=== PATIENT | male | born 1980 | race African-American/Black ===

== ENCOUNTER 2019-05-24 07:11 | Inpatient (IN) | payer MEDICAID, OTHER ==
[~2019-05-24] VITALS: Ht 170.2 cm; Wt 79.8 kg
[2019-05-24] MEDS ORDERED: ONDANSETRON HCL 4MG/2ML INJ IV STA (07:38)
[2019-05-24] MEDS ORDERED: MORPHINE SULFATE 4 MG/ML CPJ (NOT FOR IM USE) IV STA (07:38)
[2019-05-24] MEDS ORDERED: SODIUM CHLORIDE 0.9% 1,000 ML IV ONE (07:38)
[2019-05-24] MEDS ORDERED: NITROGLYCERIN OINT 1GM/INCH UDPKT TD ONE (07:45)
[2019-05-24] MEDS ORDERED: ASPIRIN 81MG TABLET PO ONE (07:45)
[2019-05-24 08:09] LABS: BASOPHILS % 0.4 % (0.0-2.0); EOSINOPHILS % 0.1 % (0.0-5.0); HEMATOCRIT. 44.9 % (42.0-52.0); HEMOGLOBIN. 15.1 g/dL (14.0-18.0); LYMPHOCYTES % 22.3 % (20.0-50.0); MEAN CORPUSCULAR HEMOGLOBIN 30.8 pg (28.0-32.0); MEAN CORPUSCULAR VOLUME 91.5 fL (80.0-94.0); MEAN PLATELET VOLUME 8.8 fl (7.4-10.4); MONOCYTES % 4.4 % (2.0-8.0); NEUTROPHILS % 72.8 % (40.0-76.0); PLATELET 234 x1000/uL (130-400); RED BLOOD CELL COUNT 4.91 mill/uL (4.7-6.1)
[2019-05-24 08:15] LABS: CHLORIDE 93 mEq/L (98-107)
[2019-05-24 08:22] LABS: ETHANOL BLOOD < 10 mg/dL
[2019-05-24 08:24] LABS: BETA HYDROXYBUTYRATE 3.8 mMol/L (0.0-0.3)
[2019-05-24] MEDS ORDERED: INSULIN REGULAR (HUMULIN R) 300UNITS/3ML IV ONE (09:00)
[2019-05-24 09:13] LABS: *AMPHETAMINES SCREEN URINE NEGATIVE (NEGATIVE); *BARBITURATES SCREEN URINE NEGATIVE (NEGATIVE); *COCAINE SCREEN URINE NEGATIVE (NEGATIVE)
[2019-05-24 09:14] LABS: *BENZODIAZEPINES SCREEN URINE NEGATIVE (NEGATIVE); CANNABINOID URINE SCREEN NEGATIVE (NEGATIVE); METHADONE URINE SCREEN NEGATIVE (NEGATIVE); OPIATES URINE SCREEN NEGATIVE (NEGATIVE); PHENCYCLIDINE URINE SCREEN NEGATIVE (NEGATIVE)
[2019-05-24] MEDS ORDERED: GUAIFENESIN 200MG/10ML SUGAR FREE UDC PO PRN (11:00)
[2019-05-24] MEDS ORDERED: DEXTROSE 50% WATER 50ML SYRINGE IV PRN (11:00)
[2019-05-24] MEDS ORDERED: DOCUSATE SODIUM 100MG CAPSULE PO PRN (11:00)
[2019-05-24] MEDS ORDERED: ONDANSETRON HCL 4MG/2ML INJ IV PRN (11:00)
[2019-05-24] MEDS ORDERED: MAGNESIUM/ALUMINUM HYDROXIDE/SIMETHICONE 30ML UDC PO PRN (11:00)
[2019-05-24] MEDS ORDERED: KETOROLAC 15MG/ML VIAL IV PRN (11:00)
[2019-05-24] MEDS ORDERED: CLONIDINE 0.1MG TABLET PO PRN (11:00)
[2019-05-24] MEDS ORDERED: LORAZEPAM 0.5MG TABLET PO PRN (11:00)
[2019-05-24] MEDS ORDERED: IPRATROPIUM/ALBUTEROL 0.5-3(2.5)MG/3ML NEB NEB PRN (11:00)
[2019-05-24] MEDS ORDERED: NITROGLYCERIN 0.4MG TABLET SL SL PRN (11:00)
[2019-05-24] MEDS ORDERED: ACETAMINOPHEN 325MG TABLET PO PRN (11:00)
[2019-05-24] MEDS: SODIUM CHLORIDE 0.9% 1,000 ML IV SCH ×2 (11:54→23:13)
[2019-05-24] MEDS: BLOOD SUGAR DIAGNOSTIC STRIP TEST SCH ×3 (13:15→21:02)
[2019-05-24] MEDS: INSULIN LISPRO 100 UNITS/ML SUBCUT SCH ×3 (13:20→20:55)
[2019-05-24] MEDS ORDERED: ZOLPIDEM TARTRATE 5MG TABLET PO PRN (21:00)
[2019-05-24 22:00] VITALS: BP 138/92
[2019-05-24] MEDS ORDERED: INSULIN GLARGINE UD 100 UNITS/ML SYR SUBCUT SCH (22:00)
[2019-05-24] MEDS: FAMOTIDINE 20MG TABLET PO SCH (23:14)
[2019-05-25] MEDS ORDERED: INSULIN GLARGINE UD 100 UNITS/ML SYR SUBCUT SCH
[2019-05-25 00:08] LABS: CREATINE KINASE 99 IU/L (39-308)
[2019-05-25 00:09] LABS: CREATINE KINASE MB FRACTION < 1.0 ng/mL (0.5-3.6)
[2019-05-25] MEDS ORDERED: INSU100V3 SUBCUT (02:28)
[2019-05-25] MEDS: SODIUM CHLORIDE 0.9% 1,000 ML IV SCH (06:07)
[2019-05-25] MEDS: BLOOD SUGAR DIAGNOSTIC STRIP TEST SCH (06:07)
[2019-05-25] MEDS ORDERED: NPH,100V SQ (06:47)
[2019-05-25] MEDS ORDERED: INSU500V SQ (06:47)
[2019-05-25 07:30] LABS: *AMPHETAMINES SCREEN URINE NEGATIVE (NEGATIVE); *BARBITURATES SCREEN URINE NEGATIVE (NEGATIVE); *BENZODIAZEPINES SCREEN URINE NEGATIVE (NEGATIVE); CANNABINOID URINE SCREEN PRESUMTIVE POSITIVE (NEGATIVE); METHADONE URINE SCREEN NEGATIVE (NEGATIVE); OPIATES URINE SCREEN PRESUMTIVE POSITIVE (NEGATIVE); PHENCYCLIDINE URINE SCREEN NEGATIVE (NEGATIVE)
[2019-05-25 07:31] LABS: *COCAINE SCREEN URINE NEGATIVE (NEGATIVE)
[2019-05-25] MEDS: FAMOTIDINE 20MG TABLET PO SCH (08:10)
[2019-05-25] MEDS: INSULIN LISPRO 100 UNITS/ML SUBCUT SCH (08:14)
[2019-05-25 08:16] VITALS: BP 124/83
[2019-05-25] MEDS ORDERED: ASPIRIN 325MG EC TABLET PO SCH (09:00)
[2019-05-25 11:12] VITALS: BP 124/83
== END 2019-05-25 12:40 | disposition home or self-care (01) | DRG 420 ==
LOC: ER 07:11 → EDBEDREQ 08:52 → 6WST 09:33 → EDBEDREQ 09:50 → EDBEDREQTM 09:50 → ENRESERV 20:28
PROVIDERS: ADMIT Internal Medicine; ATTEND Internal Medicine
DX: E11.00 Type 2 diabetes mellitus with hyperosmolarity without nonketotic hyperglycemic-hyperosmolar coma (NKHHC) (principal); E87.8 Other disorders of electrolyte and fluid balance, not elsewhere classified; E87.1 Hypo-osmolality and hyponatremia; R07.89 Other chest pain; E86.0 Dehydration; F12.10 Cannabis abuse, uncomplicated; F17.210 Nicotine dependence, cigarettes, uncomplicated; Z79.4 Long term (current) use of insulin; Z91.14 Patient's other noncompliance with medication regimen; Z79.899 Other long term (current) drug therapy
CPT/HCPCS: 36415; 71045; 80053; 80061; 80305; 80320; 82010; 82550; 82553; 82962; 83036; 83880; 84484; 85025; 93005; 93970; 99291; J1815; J2270; J2405; J7030; G0480